=== PATIENT | female | born 1950 | race Caucasian/White ===

== ENCOUNTER 2017-05-24 20:07 | Emergency (ER) | payer MEDICARE, OTHER ==
--- NOTE | 2017-05-24 21:39 | EDM.PDOC ---
ED HPI GENERAL MEDICAL PROBLEM - General Chief Complaint: Laceration Stated Complaint: FALL FACE LAC Time Seen by Provider: 05/24/17 20:39 Source of Information: Reports: Patient, Family History Limitations: Reports: No Limitations - History of Present Illness INITIAL COMMENTS - FREE TEXT/NARRATIVE: 67 y.o.w.[place] came to the ed after she fell of a Flatbed (mechanical Fall) straight onto her face. Pt noticed some facial bleed which brought her to the ED. She karimi some discomfort at her r eye when turning it to the right side. R susannah orbital tenderness as well, no LOC. No vision change. No active bleed. No other acute medical issues at this time. 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 Right Face Pain Score (Numeric/FACES): 7 - Related Data Allergies Allergy/AdvReac Type Severity Reaction Status Date / Time minocycline [Minocycline] Allergy Swelling Verified 05/24/17 20:35 Home Meds: Home Meds Ascorbic Acid [Vitamin C] 500 mg PO BID 03/22/14 [History] Calcium Carb/D3/Mag AA Chelate [Coral Calcium Capsule] 1 each PO DAILY 03/22/14 [History] Ergocalciferol (Vitamin D2) [Vitamin D] 400 unit PO DAILY 03/22/14 [History] Ferrous Sulfate [Iron] 325 mg PO DAILY 03/22/14 [History] Lactobacillus Acidophilus [Acidophilus] 1 each PO DAILY 03/22/14 [History] Levothyroxine 75 mcg PO ACBRK 03/22/14 [History] Meloxicam 15 mg PO DAILY 03/22/14 [History] Multivitamin [Multi-Vitamin Daily] 1 each PO DAILY 03/22/14 [History] Sertraline HCl 200 mg PO DAILY 03/22/14 [History] Triamcinolone Acetonide [Triamcinolone Acetonide 0.1% Crm] 1 applic TOP BID [History] Valsartan/Hydrochlorothiazide [Valsartan-Hctz 160-12.5 mg Tab] 1 each PO DAILY 03/22/14 [History] Vitamin E 400 unit PO DAILY 03/22/14 [History] traZODone 50 mg PO BEDTIME PRN 03/22/14 [History] Lutein 20 mg PO DAILY 03/23/14 [History] Amoxicillin/Potassium Clav [Augmentin 875-125 Tablet] 1 each PO BID #20 tablet 05/24/17 [Rx] Hydrocodone/Acetaminophen [[place] 5-325] 1 tab PO Q4H PRN #10 tablet 05/24/17 [Rx ] Past Medical History HEENT History: Reports: Cataract, Impaired Vision Cardiovascular History: Reports: Hypertension Respiratory History: Reports: Bronchitis, Recurrent, Pneumonia, Recurrent Gastrointestinal History: Reports: GERD Genitourinary History: Reports: UTI, Recurrent RAIL SPECIALIST History: Reports: None, Musculoskeletal History: Reports: Back Pain, Chronic Neurological History: Reports: Neuropathy, Peripheral Other Neuro History: NUMBNESS IN BALL OF LEFT FOOT AND LEFT TOES AND RIGHT GREAT TOE Psychiatric History: Reports: Depression Endocrine/Metabolic History: Reports: Hypothyroidism, Obesity/BMI 30+ Hematologic History: Reports: Blood Transfusion(s), Iron Deficiency Immunologic History: Reports: None Oncologic (Cancer) History: Reports: None Dermatologic History: Reports: None - Infectious Disease History Infectious Disease History: Reports: Chicken Pox, Measles - Past Surgical History Head Surgeries/Procedures: Reports: None Cardiovascular Surgical History: Reports: None GI Surgical History: Reports: Bariatric Procedure, Cholecystectomy, Colonoscopy , EGD, Hernia Repair/Other Female Surgical History: Reports: Breast Biopsy Endocrine Surgical History: Reports: None Neurological Surgical History: Reports: Scoliosis, Spinal Fusion Musculoskeletal Surgical History: Reports: Arthroscopic Knee, Arthroscopic Procedure, Carpal Tunnel, Knee Replacement, Shoulder Surgery Oncologic Surgical History: Reports: Biopsy of Breast, Lumpectomy Dermatological Surgical History: Reports: None Social & Family History - Tobacco Use Smoking Status *Q: Never Smoker Second Hand Smoke Exposure: No - Caffeine Use Caffeine Use: Reports: Coffee - Alcohol Use Days Per Week of Alcohol Use: 1 - Recreational Drug Use Recreational Drug Use: No ED ROS GENERAL - Review of Systems Review Of Systems: See Below Constitutional: Reports: No Symptoms HEENT: Reports: Sinus Problem (pain) Respiratory: Reports: No Symptoms Cardiovascular: Reports: No Symptoms Endocrine: Reports: No Symptoms GI/Abdominal: Reports: No Symptoms : Reports: No Symptoms Musculoskeletal: Reports: No Symptoms Skin: Reports: No Symptoms Neurological: Reports: No Symptoms Psychiatric: Reports: No Symptoms Hematologic/Lymphatic: Reports: No Symptoms Immunologic: Reports: No Symptoms ED EXAM, SKIN/RASH Exam: See Below Exam Limited By: No Limitations General Appearance: Alert, WD/WN, Mild Distress, Obese Eye Exam: Bilateral Eye: Normal Inspection Ears: Normal External Exam, Normal Canal Nose: Nasal Swelling Throat/Mouth: Normal Inspection Head: Normocephalic, Facial Swelling Neck: Normal Inspection, Supple, Non-Tender, Full Range of Motion Respiratory/Chest: No Respiratory Distress, Lungs Clear, Normal Breath Sounds Cardiovascular: Normal Peripheral Pulses, Regular Rate, Rhythm, No Edema, No Gallop Peripheral Pulses: 1+: Femoral (L), Femoral (R) GI/Abdominal: Normal Bowel Sounds, Soft, Non-Tender (Female) Exam: Deferred Rectal (Female) Exam: Deferred Back Exam: Normal Inspection, Full Range of Motion Extremities: Normal Inspection, Normal Range of Motion, Non-Tender, No Pedal Edema Neurological: Alert, Oriented, CN II-XII Intact Psychiatric: Normal Affect Location, Skin: Face ED SKIN PROCEDURES - Laceration/Wound Repair Middle Face Lac/Wound length In cm: 1 Appearance: Subcutaneous, Mildly Contaminated Distal NVT: Neuro & Vascular Intact, No Tendon Injury Anesthetic Type: Local Local Anesthesia - Bupivicaine (Marcaine): 0.5% Plain Local Anesthetic Volume: 2cc Skin Prep: Providone-Iodine (Betadine) Exploration/Debridement/Repair: Wound Explored, In a Bloodless Field Closed with: Sutures Suture Type: Interrupted Suture Size: 4-0 # of Sutures: 3 Tetanus Status Addressed: Other (pt sya she is current on her TD immunzation) Complications: No Course - Vital Signs Text/Narrative:: 67 y.o.w.f came to the ed after she fell of a Flatbed (mechanical Fall) straight onto her face. Pt noticed some facial bleed which brought her to the ED. She karimi some discomfort at her r eye when turning it to the right side. R susannah orbital tenderness as well, no LOC. No vision change. No active bleed. No other acute medical issues at this time. PE: Periorbiat edema with tenderness, Facial LAC, no active bleed. Imaging: Blowout Fx involving the right orbital floor with bone fragments and periorbital fat displaced 9 mm inferiorly into the right maxillary sinus. Procedure: Please see note above Impression: Mechanical fall, Blowout fracture right orbital floor. Facial laceration, repaired in the ed. 10.17 pm Consultation: Dr. Finley, Trauma surgeon [facility]. Tx: Wound repair, Rocnatan, ICE Reexam: Improved Plan: D/C with instructions. Last Recorded V/S: Last Vital Signs Temp 36.6 C 05/24/17 20:39 Pulse 58 L 05/24/17 20:39 Resp 14 05/24/17 20:39 BP 127/70 05/24/17 20:39 Pulse Ox 100 05/24/17 20:39 - Orders/Labs/Meds Orders: Active Orders 24 hr Category Date Time Status Max Facial Sinus wo Cont [CT] Stat Exams 05/24/17 20:54 Taken Meds: Medications Discontinued Medications Generic Name Dose Route Start Last Admin Trade Name Freq PRN Reason Stop Dose Admin Ceftriaxone Sodium 1,000 mg 05/24/17 22:36 05/24/17 22:45 Rocephin IM 05/24/17 22:37 1,000 mg ONETIME ONE Administration Departure - Departure Time of Disposition: 22:36 Disposition: Home, Self-Care 01 Condition: Good Clinical Impression: Open blow-out fracture of right orbit Qualifiers: Encounter type: initial encounter Qualified Code(s): S02.31XB - Fracture of orbital floor, right side, initial encounter for open fracture Facial laceration Qualifiers: Encounter type: initial encounter Qualified Code(s): S01.81XA - Laceration without foreign body of other part of head, initial encounter - Discharge Information Prescriptions: Amoxicillin/Potassium Clav [Augmentin 875-125 Tablet] 1 each PO BID #20 tablet Hydrocodone/Acetaminophen [[place] 5-325] 1 tab PO Q4H PRN #10 tablet PRN Reason: severe pain only Instructions: Orbital Floor Fracture, Blowout Referrals: Yu Lott NP [Primary Care Provider] - Forms: ED Department Discharge Additional Instructions: Please f/u with the facial/max surgeon Dr. Finley, [facility] this week. Please make an appointment. Please take the Augmentin Abx as recommended, Motrin for mod pain, [place] for severe pain. Please do not blow your nose. Please come back to the ed if your symptoms get worse acutely. Wound check in 2 days suture removal in 7 days. - My Orders Last 24 Hours: My Active Orders 05/24/17 20:54 Max Facial Sinus wo Cont [CT] Stat - Assessment/Plan Last 24 Hours: My Active Orders 05/24/17 20:54 Max Facial Sinus wo Cont [CT] Stat
[2017-05-24] MEDS ORDERED: cefTRIAXone 1,000 MG VIAL IM ONE (22:36)
[2017-05-24 23:07] VITALS: BP 137/66
== END 2017-05-24 23:02 | disposition home or self-care (01) ==
LOC: FB.ED 20:07
DX: S02.31XB Fracture of orbital floor, right side, initial encounter for open fracture (principal); S01.81XA Laceration without foreign body of other part of head, initial encounter; H54.7 Unspecified visual loss; I10 Essential (primary) hypertension; Z87.01 Personal history of pneumonia (recurrent); K21.9 Gastro-esophageal reflux disease without esophagitis; F32.9 Major depressive disorder, single episode, unspecified; E03.9 Hypothyroidism, unspecified; E66.9 Obesity, unspecified; Z87.440 Personal history of urinary (tract) infections; Z90.49 Acquired absence of other specified parts of digestive tract; Z79.899 Other long term (current) drug therapy; Z88.8 Allergy status to other drugs, medicaments and biological substances; Z98.84 Bariatric surgery status; W06.XXXA Fall from bed, initial encounter
CPT/HCPCS: 12011; 70486; 96372; 99283; 99284; J0696

== ENCOUNTER 2017-06-09 11:25 | Inpatient (IN) | payer MEDICARE, OTHER ==
[2017-06-09] MEDS ORDERED: Sodium Chloride 0.9% 10 ML Syringe FLUSH PRN (11:48)
--- NOTE | 2017-06-09 11:53 | EDM.PDOC ---
[id number] 4d WEAKNESS Time Seen by Provider: 06/09/17 11:40 Source of Information: Reports: Patient, Family, Old Records History Limitations: Reports: Altered Mental Status - History of Present Illness INITIAL COMMENTS - FREE TEXT/NARRATIVE: 67 yo female was seen here a couple weaks ago after a fall in which she suffered a blow out fx of the R orbit. She did not have any muscle entrapment, so the internet marketing consultant she saw in follow up did not recommend any additional tx. Over the past several days now she has become more and more confused and has generalized weakness. No focal deficits. Is drinking a lot of water lately, not eating well. Did get an Rx a few days ago for valtrex that she has been taking. Onset: Gradual Onset Date: 06/06/17 Duration: Day(s): Location: Reports: Generalized Quality: Reports: Other (no pain) Severity: Moderate Improves with: Reports: None Worsens with: Reports: Other (time) Context: Reports: Other (unknown) Associated Symptoms: Reports: Confusion, Weakness (generalized.) Treatments FORM MAKER: Reports: Other (see below) (none) all over body Pain Score (Numeric/FACES): 10 LEFT HIP AND THIGH Pain Score (Numeric/FACES): 5 - Related Data Allergies Allergy/AdvReac Type Severity Reaction Status Date / Time minocycline [Minocycline] Allergy Swelling Verified 06/09/17 11:37 Home Meds: Home Meds Ascorbic Acid [Vitamin C] 500 mg PO BID 03/22/14 [History] Calcium Carb/D3/Mag AA Chelate [Coral Calcium Capsule] 1 each PO DAILY 03/22/14 [History] Ergocalciferol (Vitamin D2) [Vitamin D] 400 unit PO DAILY 03/22/14 [History] Ferrous Sulfate [Iron] 325 mg PO DAILY 03/22/14 [History] Lactobacillus Acidophilus [Acidophilus] 1 each PO DAILY 03/22/14 [History] Levothyroxine 75 mcg PO ACBRK 03/22/14 [History] Multivitamin [Multi-Vitamin Daily] 1 each PO DAILY 03/22/14 [History] Sertraline HCl 200 mg PO DAILY 03/22/14 [History] Triamcinolone Acetonide [Triamcinolone Acetonide 0.1% Crm] 1 applic TOP BID [History] Vitamin E 400 unit PO DAILY 03/22/14 [History] traZODone 50 mg PO BEDTIME PRN 03/22/14 [History] Lutein 20 mg PO DAILY 03/23/14 [History] Amoxicillin/Potassium Clav [Augmentin 875-125 Tablet] 1 each PO BID #20 tablet 05/24/17 [Rx] Hydrocodone/Acetaminophen [[place] 5-325] 1 tab PO Q4H PRN #10 tablet 05/24/17 [Rx ] Acetaminophen [Tylenol] 650 mg PO ASDIRECTED PRN 06/09/17 [History] Esomeprazole Magnesium [Nexium 24Hr] 22.3 mg PO ASDIRECTED PRN 06/09/17 [History ] Gabapentin [Neurontin] 200 mg PO BID 06/09/17 [History] Ibuprofen [Advil] 200 mg PO ASDIRECTED PRN 06/09/17 [History] Valsartan/Hydrochlorothiazide [Valsartan-Hctz 80-12.5 mg Tab] 1 each PO DAILY [History] busPIRone [Buspar] 7.5 mg PO BID 06/09/17 [History] traMADol [Ultram] 50 mg PO BID PRN 06/09/17 [History] valACYclovir HCl [Valacyclovir] 1,000 mg PO TID 06/09/17 [History] Past Medical History HEENT History: Reports: Cataract, Impaired Vision Cardiovascular History: Reports: Hypertension Respiratory History: Reports: Bronchitis, Recurrent, Pneumonia, Recurrent Gastrointestinal History: Reports: GERD Genitourinary History: Reports: UTI, 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 APPRENTICE History: Reports: None, Musculoskeletal History: Reports: Back Pain, Chronic Neurological History: Reports: Neuropathy, Peripheral Other Neuro History: NUMBNESS IN BALL OF LEFT FOOT AND LEFT TOES AND RIGHT GREAT TOE Psychiatric History: Reports: Depression Endocrine/Metabolic History: Reports: Hypothyroidism, Obesity/BMI 30+ Hematologic History: Reports: Blood Transfusion(s), Iron Deficiency Immunologic History: Reports: None Oncologic (Cancer) History: Reports: None Dermatologic History: Reports: None - Infectious Disease History Infectious Disease History: Reports: Chicken Pox, Measles - Past Surgical History Head Surgeries/Procedures: Reports: None Cardiovascular Surgical History: Reports: None GI Surgical History: Reports: Bariatric Procedure, Cholecystectomy, Colonoscopy , EGD, Hernia Repair/Other Female Surgical History: Reports: Breast Biopsy Endocrine Surgical History: Reports: None Neurological Surgical History: Reports: Scoliosis, Spinal Fusion Musculoskeletal Surgical History: Reports: Arthroscopic Knee, Arthroscopic Procedure, Carpal Tunnel, Knee Replacement, Shoulder Surgery Oncologic Surgical History: Reports: Biopsy of Breast, Lumpectomy Dermatological Surgical History: Reports: None Social & Family History - Tobacco Use Smoking Status *Q: Never Smoker Second Hand Smoke Exposure: No - Caffeine Use Caffeine Use: Reports: Coffee - Alcohol Use Days Per Week of Alcohol Use: 1 - Recreational Drug Use Recreational Drug Use: No ED ROS GENERAL - Review of Systems Review Of Systems: See Below Constitutional: Reports: Weakness. Denies: Fever, Chills, Weight Loss HEENT: Reports: No Symptoms Respiratory: Reports: No Symptoms Cardiovascular: Reports: No Symptoms Endocrine: Reports: No Symptoms GI/Abdominal: Reports: No Symptoms : Reports: No Symptoms Musculoskeletal: Reports: No Symptoms Skin: Reports: Other (Has residual brusing from her fall a couple weeks ago.) Neurological: Reports: Confusion, Difficulty Walking, Weakness Psychiatric: Reports: No Symptoms ED EXAM, GENERAL - Physical Exam Exam: See Below Exam Limited By: No Limitations General Appearance: Alert, WD/WN, No Apparent Distress Eye Exam: Bilateral Eye: EOMI, Normal Inspection Ears: Normal External Exam, Normal Canal, Hearing Grossly Normal, Normal TMs Ear Exam: Bilateral Ear: Auricle Normal, Canal Normal, TM normal Nose: Normal Inspection, Normal Mucosa Throat/Mouth: Normal Inspection, Normal Lips, Normal Teeth, Normal Oropharynx, Normal Voice, No Airway Compromise Head: Atraumatic, Normocephalic Neck: Normal Inspection, Supple, Non-Tender Respiratory/Chest: No Respiratory Distress, Lungs Clear, Normal Breath Sounds, No Accessory Muscle Use Cardiovascular: Regular Rate, Rhythm, No Edema GI/Abdominal: Normal Bowel Sounds, Soft, Non-Tender, No Distention Back Exam: Normal Inspection. No: CVA Tenderness (R), CVA Tenderness (L), Paraspinal Tenderness, Vertebral Tenderness Extremities: Normal Inspection, Normal Range of Motion, Non-Tender, No Pedal Edema Neurological: Alert, Disoriented, Sensory/Motor Deficit (diffuse weakness of all extrems) Skin Exam: Warm, Dry, Intact, Normal Color, No Rash, Other (No evidence on skin exam today to support the dx of shingles. ). No: Zoster-Like Rash Lymphatic: No Adenopathy Course - Vital Signs Text/Narrative:: saline lock, NS + 20 meq kcl/liter @ 150 ml/h IV, KCL 40 meq po, aspirin [address] head-? evolving infarct L internal capsule(anterior limb) CXR- Last Recorded V/S: Last Vital Signs Temp 37.1 C 06/09/17 16:00 Pulse 101 H 06/09/17 14:03 Resp 35 H 06/09/17 16:00 BP 180/79 H 06/09/17 16:00 Pulse Ox 96 06/09/17 16:00 - Orders/Labs/Meds Orders: Active Orders 24 hr Category Date Time Status Patient Status [ADT] Routine ADT 06/09/17 13:27 Active Bedrest Bedside Commode [RC] ASDIRECTED Care 06/09/17 13:27 Active Vieira Catheter Insertion [Insert Urinary Catheter] [OM. Care 06/09/17 13:15 Ordered PC] Q24H Height and Weight [RC] 06 Care 06/09/17 13:27 Active Intake and Output [RC] 06,14,22 Care 06/09/17 13:28 Active Oxygen Therapy [RC] PRN Care 06/09/17 13:27 Active Urinary Catheter Assessment [RC] 08,16,00 Care 06/09/17 13:06 Active VTE/DVT Education [RC] Per Unit Routine Care 06/09/17 13:27 Active Vital Signs [RC] 04,08,12,16,20,00 Care 06/09/17 13:27 Active Regular Diet [DIET] Diet 06/09/17 Breakfast Ordered BASIC METABOLIC PANEL,BMP [CHEM] AM Lab 06/10/17 05:11 Ordered CBC WITH AUTO DIFF [HEME] AM Lab 06/10/17 05:11 Ordered CULTURE BLOOD [BC] Urgent Lab 06/09/17 12:45 Received CULTURE BLOOD [BC] Urgent Lab 06/09/17 12:50 Received Levothyroxine Med 06/09/17 13:45 Active 75 mcg PO ACBRK Lutein Med 06/10/17 09:00 Active 20 mg PO DAILY Multivitamins [Tab-A-Brett] Med 06/10/17 09:00 Active 1 tab PO DAILY Sertraline [Zoloft] Med 06/10/17 09:00 Active 200 mg PO DAILY Sodium Chloride 0.9% [Normal Saline] 1,000 ml Med 06/09/17 13:30 Active IV ASDIRECTED Sodium Chloride 0.9% [Saline Flush] Med 06/09/17 11:48 Active 10 ml FLUSH ASDIRECTED PRN Triamcinolone Acetonide [Triamcinolone Acetonide 0.1% Med 06/09/17 21:00 Active Crm] 0 gm TOP BID Vitamin E (dl, acetate) [Vitamin E] Med 06/10/17 09:00 Active 400 units PO DAILY traMADol [Ultram] Med 06/09/17 13:34 Active 50 mg PO DAILY PRN traZODone Med 06/09/17 13:34 Active 50 mg PO BEDTIME PRN Antiembolic Hose [OM.PC] Per Unit Routine Oth 06/09/17 13:30 Ordered Blood Culture x2 Reflex Set [OM.PC] Urgent Oth 06/09/17 12:21 Ordered Saline Lock Insert [OM.PC] Routine Oth 06/09/17 11:48 Ordered Resuscitation Status Routine Resus Stat 06/09/17 13:27 Ordered EKG 12 Lead [EK] Stat Ther 06/09/17 13:27 Ordered Medication Orders Sodium Chloride (Normal Saline) 1,000 mls @ 150 mls/hr IV ASDIRECTED BETHANY Last Admin: 06/09/17 15:17 Dose: 150 mls/hr Sodium Chloride (Normal Saline) 1,000 mls @ 999 mls/hr IV .BOLUS ONE Stop: 06/09/17 21:20 Levothyroxine Sodium (Levothyroxine) 75 mcg PO ACBRK REPLACED BY [facility] Last Admin: 06/09/17 15:47 Dose: Lutein (Lutein) 20 mg PO DAILY REPLACED BY [facility] Multivitamins/Minerals/Vitamin C (Tab-A-Brett) 1 tab PO DAILY REPLACED BY [facility] Non-Formulary Medication (Esomeprazole Magnesium [Nexium 24hr]) 22.3 mg PO ASDIRECTED PRN PRN Reason: ASDIRECTED Potassium Chloride (Klor-Con M20) 20 meq PO TID REPLACED BY [facility] Last Admin: 06/09/17 16:00 Dose: 20 meq Sertraline HCl (Zoloft) 200 mg PO DAILY REPLACED BY [facility] Sodium Chloride (Saline Flush) 10 ml FLUSH ASDIRECTED PRN PRN Reason: Keep Vein Open Last Admin: 06/09/17 12:20 Dose: 10 ml Tramadol HCl (Ultram) 50 mg PO DAILY PRN PRN Reason: pain Trazodone HCl (Trazodone) 50 mg PO BEDTIME PRN PRN Reason: Insomnia Triamcinolone Acetonide (Triamcinolone Acetonide 0.1% Crm) 0 gm TOP BID BETHANY Vitamin E (Vitamin E) 400 units PO DAILY BETHANY Labs: Laboratory Tests 06/09/17 06/09/17 06/09/17 Range/Units 11:55 11:55 11:55 WBC 38.2 H* (4.5-12.0) X10-3/uL RBC 2.95 L (3.23-5.20) x10(6)uL Hgb 9.4 L (11.5-15.5) g/dL Hct 27.2 L (30.0-51.3) % MCV 92.0 (80-96) fL MCH 31.9 (27.7-33.6) pg MCHC 34.7 (32.2-35.4) g/dL RDW 13.0 (11.5-15.5) % Plt Count 173 (125-369) X10(3)uL Sodium 133 L (135-145) mmol/L Potassium 2.4 L* (3.5-5.3) mmol/L Chloride 102 (100-110) mmol/L Carbon Dioxide 18 L (23-29) mmol/L BUN 63 H (8-23) mg/dL Creatinine 3.2 H* (0.6-1.3) mg/dL Est Cr Clr Drug Dosing 12.25 mL/min Estimated GFR (MDRD) 14 L (>60) BUN/Creatinine Ratio 19.7 (9-20) Glucose 130 H (80-116) mg/dL Lactic Acid (0.5-2.2) mmol/L Calcium 7.6 L (8.6-10.2) mg/dL Magnesium (1.8-2.5) mg/dL Total Bilirubin 0.7 (0.1-1.3) mg/dL AST 32 H (5-27) IU/L ALT 27 H (14-26) IU/L Alkaline Phosphatase 142 H (56-112) IU/L Troponin I 0.04 (0.02-0.06) NG/ML Total Protein 6.3 (6.0-8.0) g/dL Albumin 2.1 L (3.2-4.6) g/dL Globulin 4.2 g/dL Albumin/Globulin Ratio 0.5 Urine Color (YELLOW) Urine Appearance (CLEAR) Urine pH (5.0-6.5) Ur Specific Barney (1.010-1.025) Urine Protein (NEGATIVE) mg/dL Urine Glucose (UA) (NEGATIVE) mg/dL Urine Ketones (NEGATIVE) mg/dL Urine Occult Blood (NEGATIVE) Urine Nitrite (NEGATIVE) Urine Bilirubin (NEGATIVE) Urine Urobilinogen (NEGATIVE) mg/dL Ur Leukocyte Esterase (NEGATIVE) Urine RBC (0) Urine WBC (0) Ur Squamous Epith Cells (NS,R,O) Urine Bacteria (NS) Urine Opiates Screen (NEGATIVE) Ur Oxycodone Screen (NEGATIVE) Ur Propoxyphene Screen (NEGATIVE) Ur Barbituates Screen (NEGATIVE) Ur Tricyclics Screen (NEGATIVE) Ur Phencyclidine Scrn (NEGATIVE) Ur Amphetamine Screen (NEGATIVE) Urine MDMA Screen (NEGATIVE) U Benzodiazepines Scrn (NEGATIVE) U Cocaine Metab Screen (NEGATIVE) U Marijuana (THC) Screen (NEGATIVE) Ethyl Alcohol (<0.01) % 06/09/17 06/09/17 06/09/17 Range/Units 11:55 11:55 12:50 WBC (4.5-12.0) X10-3/uL RBC (3.23-5.20) x10(6)uL Hgb (11.5-15.5) g/dL Hct (30.0-51.3) % MCV (80-96) fL MCH (27.7-33.6) pg MCHC (32.2-35.4) g/dL RDW (11.5-15.5) % Plt Count (125-369) X10(3)uL Sodium (135-145) mmol/L Potassium (3.5-5.3) mmol/L Chloride (100-110) mmol/L Carbon Dioxide (23-29) mmol/L BUN (8-23) mg/dL Creatinine (0.6-1.3) mg/dL Est Cr Clr Drug Dosing mL/min Estimated GFR (MDRD) (>60) BUN/Creatinine Ratio (9-20) Glucose (80-116) mg/dL Lactic Acid 0.8 (0.5-2.2) mmol/L Calcium (8.6-10.2) mg/dL Magnesium 1.8 (1.8-2.5) mg/dL Total Bilirubin (0.1-1.3) mg/dL AST (5-27) IU/L ALT (14-26) IU/L Alkaline Phosphatase (56-112) IU/L Troponin I (0.02-0.06) NG/ML Total Protein (6.0-8.0) g/dL Albumin (3.2-4.6) g/dL Globulin g/dL Albumin/Globulin Ratio Urine Color (YELLOW) Urine Appearance (CLEAR) Urine pH (5.0-6.5) Ur Specific Barney (1.010-1.025) Urine Protein (NEGATIVE) mg/dL Urine Glucose (UA) (NEGATIVE) mg/dL Urine Ketones (NEGATIVE) mg/dL Urine Occult Blood (NEGATIVE) Urine Nitrite (NEGATIVE) Urine Bilirubin (NEGATIVE) Urine Urobilinogen (NEGATIVE) mg/dL Ur Leukocyte Esterase (NEGATIVE) Urine RBC (0) Urine WBC (0) Ur Squamous Epith Cells (NS,R,O) Urine Bacteria (NS) Urine Opiates Screen (NEGATIVE) Ur Oxycodone Screen (NEGATIVE) Ur Propoxyphene Screen (NEGATIVE) Ur Barbituates Screen (NEGATIVE) Ur Tricyclics Screen (NEGATIVE) Ur Phencyclidine Scrn (NEGATIVE) Ur Amphetamine Screen (NEGATIVE) Urine MDMA Screen (NEGATIVE) U Benzodiazepines Scrn (NEGATIVE) U Cocaine Metab Screen (NEGATIVE) U Marijuana (THC) Screen (NEGATIVE) Ethyl Alcohol < 0.01 (<0.01) % 06/09/17 06/09/17 Range/Units 13:15 13:15 WBC (4.5-12.0) X10-3/uL RBC (3.23-5.20) x10(6)uL Hgb (11.5-15.5) g/dL Hct (30.0-51.3) % MCV (80-96) fL MCH (27.7-33.6) pg MCHC (32.2-35.4) g/dL RDW (11.5-15.5) % Plt Count (125-369) X10(3)uL Sodium (135-145) mmol/L Potassium (3.5-5.3) mmol/L Chloride (100-110) mmol/L Carbon Dioxide (23-29) mmol/L BUN (8-23) mg/dL Creatinine (0.6-1.3) mg/dL Est Cr Clr Drug Dosing mL/min Estimated GFR (MDRD) (>60) BUN/Creatinine Ratio (9-20) Glucose (80-116) mg/dL Lactic Acid (0.5-2.2) mmol/L Calcium (8.6-10.2) mg/dL Magnesium (1.8-2.5) mg/dL Total Bilirubin (0.1-1.3) mg/dL AST (5-27) IU/L ALT (14-26) IU/L Alkaline Phosphatase (56-112) IU/L Troponin I (0.02-0.06) NG/ML Total Protein (6.0-8.0) g/dL Albumin (3.2-4.6) g/dL Globulin g/dL Albumin/Globulin Ratio Urine Color Yellow (YELLOW) Urine Appearance Cloudy (CLEAR) Urine pH 5.0 (5.0-6.5) Ur Specific Barney 1.010 (1.010-1.025) Urine Protein 30 H (NEGATIVE) mg/dL Urine Glucose (UA) Normal (NEGATIVE) mg/dL Urine Ketones Negative (NEGATIVE) mg/dL Urine Occult Blood Moderate H (NEGATIVE) Urine Nitrite Negative (NEGATIVE) Urine Bilirubin Negative (NEGATIVE) Urine Urobilinogen Normal (NEGATIVE) mg/dL Ur Leukocyte Esterase Moderate H (NEGATIVE) Urine RBC 5-10 (0) Urine WBC 75-100 H (0) Ur Squamous Epith Cells Few H (NS,R,O) Urine Bacteria Many H (NS) Urine Opiates Screen Negative (NEGATIVE) Ur Oxycodone Screen Negative (NEGATIVE) Ur Propoxyphene Screen Negative (NEGATIVE) Ur Barbituates Screen Negative (NEGATIVE) Ur Tricyclics Screen Negative (NEGATIVE) Ur Phencyclidine Scrn Negative (NEGATIVE) Ur Amphetamine Screen Negative (NEGATIVE) Urine MDMA Screen Negative (NEGATIVE) U Benzodiazepines Scrn Negative (NEGATIVE) U Cocaine Metab Screen Negative (NEGATIVE) U Marijuana (THC) Screen Negative (NEGATIVE) Ethyl Alcohol (<0.01) % Meds: Medications Generic Name Dose Route Start Last Admin Trade Name Freq PRN Reason Stop Dose Admin Sodium Chloride 1,000 mls @ 150 mls/hr 06/09/17 13:30 06/09/17 15:17 Normal Saline IV 150 mls/hr ASDIRECTED BETHANY Administration Sodium Chloride 1,000 mls @ 999 mls/hr 06/09/17 20:20 Normal Saline IV 06/09/17 21:20 .BOLUS ONE Levothyroxine Sodium 75 mcg 06/09/17 13:45 06/09/17 15:47 Levothyroxine PO Not Given ACBRK BETHANY Lutein 20 mg 06/10/17 09:00 Lutein PO DAILY REPLACED BY [facility] Multivitamins/Minerals/Vitamin C 1 tab 06/10/17 09:00 Tab-A-Brett PO DAILY REPLACED BY [facility] Non-Formulary Medication 22.3 mg 06/09/17 17:26 Esomeprazole Magnesium [Nexium 24hr] PO ASDIRECTED PRN ASDIRECTED Potassium Chloride 20 meq 06/09/17 14:01 06/09/17 16:00 Klor-Con M20 PO 20 meq TID BETHANY Administration Sertraline HCl 200 mg 06/10/17 09:00 Zoloft PO DAILY REPLACED BY [facility] Sodium Chloride 10 ml 06/09/17 11:48 06/09/17 12:20 Saline Flush FLUSH 10 ml ASDIRECTED PRN Administration Keep Vein Open Tramadol HCl 50 mg 06/09/17 13:34 Ultram PO DAILY PRN pain Trazodone HCl 50 mg 06/09/17 13:34 Trazodone PO BEDTIME PRN Insomnia Triamcinolone Acetonide 0 gm 06/09/17 21:00 Triamcinolone Acetonide 0.1% Crm TOP BID REPLACED BY [facility] Vitamin E 400 units 06/10/17 09:00 Vitamin E PO DAILY REPLACED BY [facility] Discontinued Medications Generic Name Dose Route Start Last Admin Trade Name Freq PRN Reason Stop Dose Admin Aspirin 324 mg 06/09/17 12:37 06/09/17 12:47 Aspirin PO 06/09/17 12:38 324 mg ONETIME ONE Administration Potassium Chloride/Sodium Chloride 1,000 mls @ 150 mls/hr 06/09/17 12:30 12:33 Normal Saline With 20 Meq Kcl IV 150 mls/hr ASDIRECTED BETHANY Administration Potassium Chloride/Sodium Chloride 1,000 mls @ 500 mls/hr 06/09/17 13:15 13:20 Normal Saline With 20 Meq Kcl IV 500 mls/hr ASDIRECTED BETHANY Administration Vancomycin HCl 1,000 mg/ 250 mls @ 167 mls/hr 06/09/17 17:00 06/09/17 17:38 Sodium Chloride IV 06/09/17 18:29 167 mls/hr ONETIME ONE Administration Ceftriaxone Sodium 1,000 mg/ 50 mls @ 100 mls/hr 06/09/17 16:00 06/09/17 16: 41 Sodium Chloride IV 06/09/17 16:29 100 mls/hr ONETIME ONE Administration Potassium Chloride 40 meq 06/09/17 12:18 06/09/17 12:33 Klor-Con 10 PO 06/09/17 12:19 40 meq ONETIME ONE Administration Departure - Departure Time of Disposition: 16:05 Disposition: Admitted As Inpatient 66 Condition: Fair Clinical Impression: Hyperkalemia, Hyponatremia Acute renal failure Qualifiers: Acute renal failure type: unspecified Qualified Code(s): N17.9 - Acute kidney failure, unspecified Leukocytosis Qualifiers: Leukocytosis type: unspecified Qualified Code(s): D72.829 - Elevated white blood cell count, unspecified Anemia Qualifiers: Anemia type: unspecified type Qualified Code(s): D64.9 - Anemia, unspecified - Discharge Information - My Orders Last 24 Hours: My Active Orders 06/09/17 11:48 Sodium Chloride 0.9% [Saline Flush] 10 ml FLUSH ASDIRECTED PRN Saline Lock Insert [OM.PC] Routine 06/09/17 12:21 Blood Culture x2 Reflex Set [OM.PC] Urgent 06/09/17 12:45 CULTURE BLOOD [BC] Urgent 06/09/17 12:50 CULTURE BLOOD [BC] Urgent 06/09/17 13:06 Urinary Catheter Assessment [RC] 08,16,00 06/09/17 13:15 Vieira Catheter Insertion [Insert Urinary Catheter] [OM.PC] Q24H - Assessment/Plan Last 24 Hours: My Active Orders 06/09/17 11:48 Sodium Chloride 0.9% [Saline Flush] 10 ml FLUSH ASDIRECTED PRN Saline Lock Insert [OM.PC] Routine 06/09/17 12:21 Blood Culture x2 Reflex Set [OM.PC] Urgent 06/09/17 12:45 CULTURE BLOOD [BC] Urgent 06/09/17 12:50 CULTURE BLOOD [BC] Urgent 06/09/17 13:06 Urinary Catheter Assessment [RC] 08,16,00 06/09/17 13:15 Vieira Catheter Insertion [Insert Urinary Catheter] [OM.PC] Q24H
[2017-06-09] MEDS ORDERED: Potassium Chloride 10 MEQ Tab.ER PO ONE (12:18)
[2017-06-09] MEDS ORDERED: NS + KCl 20mEq/L 1,000 ML IV SCH ×2 (12:30→13:15)
[2017-06-09] MEDS ORDERED: Aspirin 81 MG Tab.Chew PO ONE (12:37)
[2017-06-09] MEDS ORDERED: Sodium Chloride 0.9% 1,000 ML IV SCH (13:30)
[2017-06-09] MEDS ORDERED: traMADol 50 MG Tab PO PRN (13:34)
[2017-06-09] MEDS ORDERED: traZODone 50 MG Tab PO PRN (13:34)
--- NOTE | 2017-06-09 13:40 | PCM.HP ---
H&P History of Present Illness - General Date of Service: 06/09/17 Source of Information: Patient, Old Records, Significant Other - History of Present Illness Initial Comments - Free Text/Narative: 67-year-old female came in because of feeling poorly. Her symptoms started a few days ago. Her brought her in because she looked confused which is new for her. Last week short incision at the clinic given Valtrex for possible shingles. She also fell in the last month and hit her head sustaining a blow out fracture of the orbit. That has been healing well. She has a history of hypothyroidism that is stable hypertension that is well controlled and depression and anxiety that have also been well-controlled. She denies fever but complains of chills and rigors, some anxiety attacks, but no headache or cough No complaints of any chest pain neck pain or stiffness. The emergency room she was found to have a high creatinine(4.4) compared to last baseline(1.2) at the beginning of this year. all over body Pain Score (Numeric/FACES): 10 LEFT HIP AND THIGH Pain Score (Numeric/FACES): 5 - Related Data Allergies/Adverse Reactions: Allergies Allergy/AdvReac Type Severity Reaction Status Date / Time minocycline [Minocycline] Allergy Swelling Verified 06/09/17 11:37 Home Medications: Home Meds Ascorbic Acid [Vitamin C] 500 mg PO BID 03/22/14 [History] Calcium Carb/D3/Mag AA Chelate [Coral Calcium Capsule] 1 each PO DAILY 03/22/14 [History] Ergocalciferol (Vitamin D2) [Vitamin D] 400 unit PO DAILY 03/22/14 [History] Ferrous Sulfate [Iron] 325 mg PO DAILY 03/22/14 [History] Lactobacillus Acidophilus [Acidophilus] 1 each PO DAILY 03/22/14 [History] Levothyroxine 75 mcg PO ACBRK 03/22/14 [History] Multivitamin [Multi-Vitamin Daily] 1 each PO DAILY 03/22/14 [History] Sertraline HCl 200 mg PO DAILY 03/22/14 [History] Triamcinolone Acetonide [Triamcinolone Acetonide 0.1% Crm] 1 applic TOP BID [History] Vitamin E 400 unit PO DAILY 03/22/14 [History] traZODone 50 mg PO BEDTIME PRN 03/22/14 [History] Lutein 20 mg PO DAILY 03/23/14 [History] Amoxicillin/Potassium Clav [Augmentin 875-125 Tablet] 1 each PO BID #20 tablet 05/24/17 [Rx] Hydrocodone/Acetaminophen [[place] 5-325] 1 tab PO Q4H PRN #10 tablet 05/24/17 [Rx ] Acetaminophen [Tylenol] 650 mg PO ASDIRECTED PRN 06/09/17 [History] Esomeprazole Magnesium [Nexium 24Hr] 22.3 mg PO ASDIRECTED PRN 06/09/17 [History ] Gabapentin [Neurontin] 200 mg PO BID 06/09/17 [History] Ibuprofen [Advil] 200 mg PO ASDIRECTED PRN 06/09/17 [History] Valsartan/Hydrochlorothiazide [Valsartan-Hctz 80-12.5 mg Tab] 1 each PO DAILY [History] busPIRone [Buspar] 7.5 mg PO BID 06/09/17 [History] traMADol [Ultram] 50 mg PO BID PRN 06/09/17 [History] valACYclovir HCl [Valacyclovir] 1,000 mg PO TID 06/09/17 [History] Past Medical History HEENT History: Reports: Cataract, Impaired Vision Cardiovascular History: Reports: Hypertension Respiratory History: Reports: Bronchitis, Recurrent, Pneumonia, Recurrent Gastrointestinal History: Reports: GERD Genitourinary History: Reports: UTI, Recurrent [employer] DES[employer] History: Reports: None, Musculoskeletal History: Reports: Back Pain, Chronic Neurological History: Reports: Neuropathy, Peripheral Other Neuro History: NUMBNESS IN BALL OF LEFT FOOT AND LEFT TOES AND RIGHT GREAT TOE Psychiatric History: Reports: Depression Endocrine/Metabolic History: Reports: Hypothyroidism, Obesity/BMI 30+ Hematologic History: Reports: Blood Transfusion(s), Iron Deficiency Immunologic History: Reports: None Oncologic (Cancer) History: Reports: None Dermatologic History: Reports: None - Infectious Disease History Infectious Disease History: Reports: Chicken Pox, Measles - Past Surgical History Head Surgeries/Procedures: Reports: None Cardiovascular Surgical History: Reports: None GI Surgical History: Reports: Bariatric Procedure, Cholecystectomy, Colonoscopy , EGD, Hernia Repair/Other Female Surgical History: Reports: Breast Biopsy Endocrine Surgical History: Reports: None Neurological Surgical History: Reports: Scoliosis, Spinal Fusion Musculoskeletal Surgical History: Reports: Arthroscopic Knee, Arthroscopic Procedure, Carpal Tunnel, Knee Replacement, Shoulder Surgery Oncologic Surgical History: Reports: Biopsy of Breast, Lumpectomy Dermatological Surgical History: Reports: None Social & Family History - Family History Family Medical History: Unobtainable - Tobacco Use Smoking Status *Q: Never Smoker Second Hand Smoke Exposure: No - Caffeine Use Caffeine Use: Reports: Coffee - Alcohol Use Days Per Week of Alcohol Use: 1 - Recreational Drug Use Recreational Drug Use: No Drug Use in Last 12 Months: No H&P Review of Systems - Review of Systems: Review Of Systems: ROS reveals no pertinent complaints other than HPI. Exam - Exam Exam: See Below - Vital Signs Vital Signs: Last Vital Signs Temp 99.0 F 06/09/17 11:25 Pulse 112 H 06/09/17 11:25 Resp 17 06/09/17 11:25 BP 123/63 06/09/17 11:25 Pulse Ox 92 L 06/09/17 11:25 Weight: 73.936 kg - Exam General: Alert, Oriented, 4 HEENT: PERRLA, Hearing Intact, Mucosa Moist & [place], Nares Patent, Normal Nasal Septum, Posterior Pharynx Clear, Conjunctiva Clear, EOMI, EACs Clear, TMs Clear Neck: Supple, Trachea Midline, 2 Lungs: Clear to Auscultation, Normal Respiratory Effort Cardiovascular: Regular Rate, Regular Rhythm GI/Abdominal Exam: Normal Bowel Sounds, Soft, Non-Tender, No Organomegaly, No Distention, No Abnormal Bruit, No Mass, Pelvis Stable (Female) Exam: Normal External Exam, Normal Speculum Exam, Normal Bimanual Exam Rectal (Female) Exam: Normal Exam, Normal Rectal Tone Back Exam: Normal Inspection, Full Range of Motion, NT Extremities: Normal Inspection, Normal Range of Motion, Non-Tender, No Pedal Edema, Normal Capillary Refill Skin: Warm, Dry, Intact Neurological: Cranial Nerves Intact, Reflexes Equal Bilateral Neuro Extensive - Mental Status: Alert, Oriented x3, Normal Mood/Affect, Normal Cognition Neuro Extensive - Motor, Sensory, Reflexes: CN II-XII Intact, Normal Gait, Normal Reflexes Psychiatric: Labile Mood - Patient Data Result Diagrams: 06/09/17 11:55 06/09/17 16:05 Imaging Impressions Last 24 hrs: CXR-neg,CT head Neg *Q Meaningful Use (ADM) - VTE *Q VTE Criteria *Q: - Stroke *Q Stroke Criteria *Q: - AMI *Q AMI Criteria *Q: - Problem List (1) UTI (urinary tract infection) SNOMED Code(s): 87602067 ICD Code: N39.0 - URINARY TRACT INFECTION, SITE NOT SPECIFIED Status: Acute Current Visit: Yes Qualifiers: Encounter type: initial encounter (2) Acute kidney injury SNOMED Code(s): 51925739 ICD Code: N17.9 - ACUTE KIDNEY FAILURE, UNSPECIFIED Status: Acute Priority: High Current Visit: Yes (3) Altered awareness, transient SNOMED Code(s): 619041713 ICD Code: R40.4 - TRANSIENT ALTERATION OF AWARENESS Status: Acute Current Visit: Yes (4) HTN (hypertension) SNOMED Code(s): 63876571 ICD Code: I10 - ESSENTIAL (PRIMARY) HYPERTENSION Status: Acute Current Visit: Yes Qualifiers: Hypertension type: essential hypertension Qualified Code(s): I10 - Essential (primary) hypertension (5) Anxiety SNOMED Code(s): 06671440 ICD Code: F41.9 - ANXIETY DISORDER, UNSPECIFIED Status: Acute Current Visit: Yes (6) Depression SNOMED Code(s): 65136398 ICD Code: F32.9 - MAJOR DEPRESSIVE DISORDER, SINGLE EPISODE, UNSPECIFIED Status: Acute Current Visit: Yes Qualifiers: Depression Type: major depressive disorder Active/Remission status: currently active (7) Hypothyroid SNOMED Code(s): 17077645 ICD Code: E03.9 - HYPOTHYROIDISM, UNSPECIFIED Status: Chronic Priority: Medium Current Visit: Yes Qualifiers: Hypothyroidism type: acquired Qualified Code(s): E03.9 - Hypothyroidism, unspecified (8) Leucocytosis SNOMED Code(s): 475644336, 303840252 ICD Code: D72.829 - ELEVATED WHITE BLOOD CELL COUNT, UNSPECIFIED Status: Acute Current Visit: Yes (9) Hypoxia SNOMED Code(s): 866029745, 363594124 ICD Code: R09.02 - HYPOXEMIA Status: Acute Current Visit: Yes (10) Hypokalemia SNOMED Code(s): 05885249 ICD Code: E87.6 - HYPOKALEMIA Status: Acute Current Visit: Yes Problem List Initiated/Reviewed/Updated: Yes Orders Last 24hrs: Medication Orders Potassium Chloride/Sodium Chloride (Normal Saline With 20 Meq Kcl) 1,000 mls @ 500 mls/hr IV ASDIRECTED BETHANY Last Admin: 06/09/17 13:20 Dose: 500 mls/hr Sodium Chloride (Normal Saline) 1,000 mls @ 150 mls/hr IV ASDIRECTED BETHANY Levothyroxine Sodium (Levothyroxine) 75 mcg PO ACBRK [facility] Multivitamins/Minerals/Vitamin C (Tab-A-Brett) tab PO DAILY BETHANY Non-Formulary Medication (Lutein [Lutein]) 20 mg PO DAILY BETHANY Non-Formulary Medication (Vitamin E [Vitamin E]) 400 unit PO DAILY BETHANY Sertraline HCl (Zoloft) 200 mg PO DAILY BETHANY Sodium Chloride (Saline Flush) 10 ml FLUSH ASDIRECTED PRN PRN Reason: Keep Vein Open Last Admin: 06/09/17 12:20 Dose: 10 ml Tramadol HCl (Ultram) 50 mg PO DAILY PRN PRN Reason: pain Trazodone HCl (Trazodone) 50 mg PO BEDTIME PRN PRN Reason: Insomnia Triamcinolone Acetonide (Triamcinolone Acetonide 0.1% Crm) gm TOP BID [facility] Assessment/Plan Comment:: I have reviewed the history extensively and spoke with primary care physician Afsaneh Lott. She confers that the symptoms are fairly new. and so is her renal insufficiency. Urine does show some white cells,leucocytes, and because of it I feel that perhaps the source of infection is the urinary tract.Meningitis uis a consideration,but I have no physical signs to support that.I Will obtain blood cultures and urine cultures,and in the meantime I have elected to treat her with Vancomycin and Rocephin awaiting those tests results. We'll continue with IV fluid resuscitation along with potassium replacement. I have discontinued or held most of the home medications including narcotics, gabapentin and Valtrex. I 'll use when necessary benzodiazepine to help with delirium or anxiety.
[2017-06-09] MEDS ORDERED: Levothyroxine 75 MCG Tab PO SCH (13:45)
--- NOTE | 2017-06-09 13:59 | CT ---
INDICATION: Confusion, weakness for a few days. Slurred speech, generalized weakness. CT HEAD WITHOUT CONTRAST: Serial contiguous 2.5 and 5-mm sections were obtained through the brain without contrast 06/09/2017. No comparisons were available. Total Exam DLP = 845.81 mGy-cm. Paranasal sinuses and mastoid air cells appear to be well aerated. No definite cranial abnormality is seen. Calcifications are noted in the internal carotid arteries and left vertebral artery. There is suggestion of low-density area in the anterior limb of the left internal capsule, raising question of a lacunar infarct or possibly an evolving lacunar infarct in that area. A tiny area of low-density in the left basal ganglia could represent a very tiny lacunar infarct or possibly a vascular structure. Mild prominence of sulci in the frontal lobes suggests the possibility of mild frontal cortical atrophy. There may be also some minimal temporal cortical atrophy. No bleeding site or hematoma or other finding to strongly suggest an acute intracranial abnormality is identified. No shift of midline structures or ventricular abnormalities were identified. IMPRESSION: 1. No definite acute intracranial abnormality. However, an evolving lacunar infarct could be present in the anterior limb of the left internal capsule. 2. Frontal cortical and possibly mild temporal lobe cortical atrophy. 3. Internal carotid artery calcifications with left vertebral artery calcification minimal. 4. Possible tiny lacunar infarct versus a vascular structure in the left basal ganglia. Report was called to Dr. Edwards at 1237 hours, 06/09/2017. [facility]
--- NOTE | 2017-06-09 15:11 | CR ---
INDICATION: Hypoxia. High white blood count. CHEST: Two AP upright views of the chest were obtained 06/09/2017. No comparisons were available. A very poor inspiration is noted, emphasizing the heart, which most likely is within normal limits in size. However, a full inspiration PA view may be helpful for further evaluation of the heart. The aorta is somewhat tortuous. A definite active infiltrate or effusion was not identified. A fusion is noted in the mid cervical spine. IMPRESSION: No definite acute process. Study somewhat limited by poor inspiration. MTDD
[2017-06-09] MEDS: Potassium Chloride 20 MEQ Tab.ER PO SCH ×2 (16:00→23:30)
[2017-06-09] MEDS ORDERED: cefTRIAXone 1,000 MG in Sodium Chloride 0.9% 50 ML IV ONE (16:00)
[2017-06-09] MEDS ORDERED: ESOMEPRAZOLE MAGNESIUM 22.3 MG PO PRN (17:26)
[2017-06-09] MEDS ORDERED: Sodium Chloride 0.9% 1,000 ML IV ONE (20:20)
[2017-06-09] MEDS ORDERED: Triamcinolone Acetonide 0.1% Crm 15 GM Tube TOP SCH (21:00)
[2017-06-09 23:26] VITALS: BP 81/47
[2017-06-10] MEDS ORDERED: Sertraline 100 MG Tab PO SCH (09:00)
[2017-06-10] MEDS ORDERED: Vitamin E (dl-alpha-tocopherol acetate) 400 Unit Cap PO SCH (09:00)
[2017-06-10] MEDS ORDERED: Multivitamin Tab PO SCH (09:00)
--- NOTE | 2017-06-10 10:31 | DISCH ---
DISCHARGE DATE: 06/09/2017 REASON FOR ADMISSION: 1. Altered mental status. 2. Acute kidney injury. 3. Hypothyroidism. 4. Depression. 5. Anxiety. 6. Hypertension. 7. Leukocytosis. 8. Hypoxia. 9. Hypokalemia. 10.Urinary tract infection. DISCHARGE DIAGNOSES: 1. Altered mental status. 2. Acute kidney injury. 3. Hypothyroidism. 4. Depression. 5. Anxiety. 6. Hypertension. 7. Leukocytosis. 8. Hypoxia. 9. Hypokalemia. 10.Urinary tract infection. 11.Rule out septic shock. BRIEF HISTORY: This 67-year-old female came into the ER with confusion and was found to have renal failure and hypokalemia. She was started on IV fluids. White cell count was very high on admission and had a low-grade fever of 100. She was admitted to the floor, but over the course of the afternoon, continued to deteriorate with vital signs erratic and blood pressures that went down to 80 systolic. She was alert with a normal urine output however. Urine culture was set up, so was a blood culture. Chest x-ray was unremarkable. She got one dose of Rocephin and one dose of vancomycin, but I deemed that she needed further care and called the ICU in [place] and transferred to [place]. She was transferred by [facility] ambulance in stable condition. I spent less than 30 minutes in the transfer of the patient. /[id number] MELIZA/MEHREEN
== END 2017-06-09 21:00 | DRG 683 ==
LOC: FB.ED 11:25 → FB.MS 13:37
PROVIDERS: ADMIT Family Medicine; ATTEND Family Medicine
DX: N17.9 Acute kidney failure, unspecified (principal); E87.5 Hyperkalemia; E87.1 Hypo-osmolality and hyponatremia; D72.829 Elevated white blood cell count, unspecified; D64.9 Anemia, unspecified; N39.0 Urinary tract infection, site not specified; R41.0 Disorientation, unspecified; E03.9 Hypothyroidism, unspecified; F32.9 Major depressive disorder, single episode, unspecified; F41.9 Anxiety disorder, unspecified; R09.02 Hypoxemia; E87.6 Hypokalemia; K21.9 Gastro-esophageal reflux disease without esophagitis; G62.9 Polyneuropathy, unspecified; I10 Essential (primary) hypertension; Z79.899 Other long term (current) drug therapy
CPT/HCPCS: 36415; 51702; 70450; 71010; 80053; 80305; 81001; 83605; 83735; 84484; 85027; 87040 ×2; 87077 ×2; 87086; 87186 ×2; 96360; 99284; 99285; A9270 ×2; G0480; J3480; J7050; 80048; 83880; 85025; 85379; 87088; 93005; J0696; J3370; J7040

== ENCOUNTER 2017-06-24 09:12 | Inpatient (IN) | payer MEDICARE, OTHER ==
[2017-07-02] MEDS: oxyCODONE 5 MG Tab PO PRN ×3 (14:09→22:37)
[2017-07-02] MEDS ORDERED: Acetaminophen 325 MG Tab PO PRN (17:03)
[2017-07-02] MEDS ORDERED: oxyCODONE 5 MG Tab PO PRN (17:03)
[2017-07-02] MEDS: Levofloxacin 250 MG Tab PO SCH (18:37)
[2017-07-02] MEDS: Pantoprazole 40 MG Tab.CR PO SCH (18:41)
[2017-07-02] MEDS: busPIRone 15 MG Tab PO SCH (20:25)
[2017-07-02] MEDS ORDERED: Gabapentin 100 MG Cap PO SCH (21:00)
[2017-07-02] MEDS: Docusate Sodium 100 MG Cap PO SCH (21:00)
[2017-07-02] MEDS: traZODone 50 MG Tab PO PRN (22:37)
[2017-07-03] MEDS: Levothyroxine 75 MCG Tab PO SCH (07:44)
[2017-07-03] MEDS: Pantoprazole 40 MG Tab.CR PO SCH ×2 (07:44→17:57)
--- NOTE | 2017-07-03 08:47 | PCM.HP ---
H&P History of Present Illness - General Date of Service: 07/03/17 Admit Problem/Dx: Admission Diagnosis/Problem Admission Diagnosis/Problem Septicemia Source of Information: Patient, Old Records - History of Present Illness Initial Comments - Free Text/Narative: 67-year-old female admitted to transitional care for weakness strengthening, and physical therapy. She was admitted at [place] for sepsis due to urinary tract infection. 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 She was in septic shock. The abscess grew Doreen. She also had enterococcus growing from retroperitoneal abscess. She did FER drain for this which was taken out before discharge. She had a complicated course of the hospital is now improved and is being admitted for strengthening due to generalized weakness and physical deconditioning. She complains of chronic back pain on the left side that goes down to the leg. Previously took oxycodone 10 mg every 4 hours of hospital this was reduced to 5 mg upon discharge and she is questioning that. She denies any weakness, fever, chills, cough, shortness of breath or chest pain. She has a previous history of hypertension, chronic back pain, anxiety and depression, and hypothyroidism previously been stable. sciatic Pain Score (Numeric/FACES): 6 - Related Data Allergies/Adverse Reactions: Allergies Allergy/AdvReac Type Severity Reaction Status Date / Time minocycline [Minocycline] Allergy Swelling Verified 06/09/17 11:37 Home Medications: Home Meds Calcium Carb/D3/Mag AA Chelate [Coral Calcium Capsule] 1 each PO DAILY 03/22/14 [History] Ergocalciferol (Vitamin D2) [Vitamin D] 400 unit PO DAILY 03/22/14 [History] Levothyroxine 75 mcg PO ACBRK 03/22/14 [History] Sertraline HCl 200 mg PO DAILY 03/22/14 [History] traZODone 50 mg PO BEDTIME PRN 03/22/14 [History] Acetaminophen [Tylenol] 650 mg PO Q4H PRN 06/09/17 [History] Gabapentin [Neurontin] 200 mg PO BID 06/09/17 [History] busPIRone [Buspar] 7.5 mg PO BID 06/09/17 [History] 0.9 % Sodium Chloride [Sodium Chloride] 5 ml IJ DAILY 07/02/17 [History] Docusate Sodium [Colace] 100 mg PO BID 07/02/17 [History] Esomeprazole [NexIUM] 20 mg PO BIDAC 07/02/17 [History] Fluconazole [Diflucan] 400 mg PO DAILY 07/02/17 [History] Levofloxacin 750 mg PO Q48H 07/02/17 [History] amLODIPine [Norvasc] 5 mg PO DAILY 07/02/17 [History] oxyCODONE 5 mg PO Q4H PRN 07/02/17 [History] Past Medical History HEENT History: Reports: Cataract, Impaired Vision Other HEENT History: ("eyes shift") Cardiovascular History: Reports: Hypertension Respiratory History: Reports: Bronchitis, Recurrent, Pneumonia, Recurrent Gastrointestinal History: Reports: GERD Genitourinary History: Reports: Acute Renal Failure, Renal Disease, UTI, Recurrent, Other (See Below) Other Genitourinary History: lef tkidney removed 05/2017 [employer] History: Reports: None, Musculoskeletal History: Reports: Back Pain, Chronic Neurological History: Reports: Neuropathy, Peripheral Other Neuro History: NUMBNESS IN BALL OF LEFT FOOT AND LEFT TOES AND RIGHT GREAT TOE Psychiatric History: Reports: Depression Endocrine/Metabolic History: Reports: Hypothyroidism, Obesity/BMI 30+ Hematologic History: Reports: Blood Transfusion(s), Iron Deficiency Immunologic History: Reports: None Oncologic (Cancer) History: Reports: None Dermatologic History: Reports: None - Infectious Disease History Infectious Disease History: Reports: Chicken Pox - Past Surgical History Head Surgeries/Procedures: Reports: None Cardiovascular Surgical History: Reports: None GI Surgical History: Reports: Bariatric Procedure, Cholecystectomy, Colonoscopy , EGD, Hernia Repair/Other, Other (See Below) Other GI Surgeries/Procedures: apron removal, panniculectomy Female Surgical History: Reports: Breast Biopsy Endocrine Surgical History: Reports: None Neurological Surgical History: Reports: Scoliosis, Spinal Fusion Musculoskeletal Surgical History: Reports: Arthroscopic Knee, Arthroscopic Procedure, Carpal Tunnel, Knee Replacement, Shoulder Surgery Oncologic Surgical History: Reports: Biopsy of Breast, Lumpectomy Dermatological Surgical History: Reports: None Social & Family History - Family History Family Medical History: Unobtainable - Tobacco Use Smoking Status *Q: Former Smoker Used Tobacco, but Quit: Yes Month Tobacco Last Used: 1990 Second Hand Smoke Exposure: No - Caffeine Use Caffeine Use: Reports: Coffee - Alcohol Use Days Per Week of Alcohol Use: 1 Number of Drinks Per Day: 1 Total Drinks Per Week: 1 - Recreational Drug Use Recreational Drug Use: No Drug Use in Last 12 Months: No H&P Review of Systems - Review of Systems: Review Of Systems: ROS reveals no pertinent complaints other than HPI. Exam - Exam Exam: See Below - Vital Signs Vital Signs: Last Vital Signs Temp 98.7 F 07/02/17 12:00 Pulse 74 07/02/17 12:00 Resp 18 07/02/17 12:00 BP 114/57 L 07/02/17 12:00 Pulse Ox 95 07/02/17 12:00 Weight: 70.67 kg - Exam General: Alert, Oriented, 4 HEENT: PERRLA, Hearing Intact, Mucosa Moist & [place], Nares Patent, Normal Nasal Septum, Posterior Pharynx Clear, Conjunctiva Clear, EOMI, EACs Clear, TMs Clear Neck: Supple, Trachea Midline, 2 Lungs: Clear to Auscultation, Normal Respiratory Effort Cardiovascular: Regular Rate, Regular Rhythm GI/Abdominal Exam: Normal Bowel Sounds, Soft, Non-Tender, No Organomegaly, No Distention, No Abnormal Bruit, No Mass, Pelvis Stable (Female) Exam: Normal External Exam, Normal Speculum Exam, Normal Bimanual Exam Rectal (Female) Exam: Normal Exam, Normal Rectal Tone Back Exam: Normal Inspection, Full Range of Motion, Muscle Spasm, Paraspinal Tenderness, Vertebral Tenderness Extremities: Normal Inspection, Normal Range of Motion, Non-Tender, No Pedal Edema, Normal Capillary Refill Skin: Warm, Dry, Intact Neurological: Cranial Nerves Intact, Reflexes Equal Bilateral Neuro Extensive - Mental Status: Alert, Oriented x3, Normal Mood/Affect, Normal Cognition Neuro Extensive - Motor, Sensory, Reflexes: CN II-XII Intact, Normal Gait, Normal Reflexes Psychiatric: Alert, Normal Affect, Normal Mood *Q Meaningful Use (ADM) - VTE *Q VTE Criteria *Q: - Stroke *Q Stroke Criteria *Q: - AMI *Q AMI Criteria *Q: - Problem List (1) Chronic back pain SNOMED Code(s): 345768018 ICD Code: M54.9 - DORSALGIA, UNSPECIFIED; G89.29 - OTHER CHRONIC PAIN Status: Acute Current Visit: Yes Qualifiers: Back pain location: low back pain Sciatica laterality: sciatica of left side (2) H/O unilateral nephrectomy SNOMED Code(s): 39457165556811 ICD Code: Z90.5 - ACQUIRED ABSENCE OF KIDNEY Status: Acute Current Visit : Yes (3) H/O splenectomy SNOMED Code(s): 487684975 ICD Code: Z90.81 - ACQUIRED ABSENCE OF SPLEEN Status: Acute Current Visit : Yes (4) Depression SNOMED Code(s): 40314204 ICD Code: F32.9 - MAJOR DEPRESSIVE DISORDER, SINGLE EPISODE, UNSPECIFIED Status: Acute Current Visit: No Qualifiers: Depression Type: major depressive disorder Active/Remission status: currently active (5) HTN (hypertension) SNOMED Code(s): 74542774 ICD Code: I10 - ESSENTIAL (PRIMARY) HYPERTENSION Status: Acute Current Visit: No Qualifiers: Hypertension type: essential hypertension (6) UTI (urinary tract infection) SNOMED Code(s): 71762636 ICD Code: N39.0 - URINARY TRACT INFECTION, SITE NOT SPECIFIED Status: Acute Current Visit: No Qualifiers: Encounter type: sequela (7) Hypothyroid SNOMED Code(s): 46668239 ICD Code: E03.9 - HYPOTHYROIDISM, UNSPECIFIED Status: Chronic Priority: Medium Current Visit: No Qualifiers: Hypothyroidism type: unspecified Qualified Code(s): E03.9 - Hypothyroidism , unspecified Problem List Initiated/Reviewed/Updated: Yes Orders Last 24hrs: Active Orders 24 hr Category Date Time Status Admission Status [Patient Status] [ADT] Routine ADT 07/02/17 11:50 Active Activity as Tolerated [RC] .Routine Care 07/02/17 13:42 Active OT Evaluation and Treatment [CONS] Routine Cons 07/02/17 13:42 Active PT Evaluation and Treatment [CONS] Routine Cons 07/02/17 13:42 Active Regular Diet [DIET] Diet 07/02/17 Dinner Active Acetaminophen [Tylenol] Med 07/02/17 17:03 Active 650 mg PO Q4H PRN Calcium Carbonate/Vitamin D3 [Calcium Carbonate/Vitamin Med 07/03/17 09:00 Active D 1250 MG-200 Unit] 1 tab PO DAILY Cholecalciferol (Vitamin D3) [Vitamin D3] Med 07/03/17 09:00 Active 1,000 units PO DAILY Docusate Sodium [Colace] Med 07/02/17 21:00 Active 100 mg PO BID Fluconazole [Diflucan] Med 07/03/17 09:00 Active 400 mg PO DAILY Gabapentin [Neurontin] Med 07/02/17 21:00 Active 200 mg PO BID Levofloxacin [Levaquin] Med 07/02/17 18:00 Active 750 mg PO Q48H Levothyroxine Med 07/03/17 07:30 Active 75 mcg PO ACBRK Pantoprazole [ProTONIX] Med 07/02/17 17:30 Active 40 mg PO BIDAC Sertraline [Zoloft] Med 07/03/17 09:00 Active 200 mg PO DAILY Sodium Chloride 0.9% [Saline Flush] Med 07/03/17 09:00 Active 5 ml IV DAILY amLODIPine [Norvasc] Med 07/03/17 09:00 Active 5 mg PO DAILY busPIRone [Buspar] Med 07/02/17 21:00 Active 7.5 mg PO BID oxyCODONE Med 07/02/17 13:53 Active 5 mg PO Q4H PRN oxyCODONE Med 07/02/17 17:03 Active 5 mg PO Q4H PRN traZODone Med 07/02/17 17:03 Active 50 mg PO BEDTIME PRN Resuscitation Status Routine Resus Stat 07/03/17 08:11 Ordered Medication Orders Acetaminophen (Tylenol) 650 mg PO Q4H PRN PRN Reason: Pain (mild 1-3) Amlodipine Besylate (Norvasc) 5 mg PO DAILY [facility] Buspirone HCl (Buspar) 7.5 mg PO BID [facility] Last Admin: 07/02/17 20:25 Dose: 7.5 mg Calcium Carbonate (Calcium Carbonate/Vitamin D 1250 Mg-200 Unit) 1 tab PO DAILY [facility] Cholecalciferol (Vitamin D3) 1,000 units PO DAILY [facility] Docusate Sodium (Colace) 100 mg PO BID [facility] Last Admin: 07/02/17 21:00 Dose: 100 mg Fluconazole (Diflucan) 400 mg PO DAILY [facility] Gabapentin (Neurontin) 200 mg PO BID [facility] Last Admin: 07/02/17 21:00 Dose: 200 mg Levofloxacin (Levaquin) 750 mg PO Q48H [facility] Last Admin: 07/02/17 18:37 Dose: 750 mg Levothyroxine Sodium (Levothyroxine) 75 mcg PO ACBRK [facility] Last Admin: 07/03/17 07:44 Dose: 75 mcg Oxycodone HCl (Oxycodone) 5 mg PO Q4H PRN PRN Reason: Pain Last Admin: 07/02/17 22:37 Dose: 5 mg Admin: 07/02/17 18:37 Dose: 5 mg Admin: 07/02/17 14:09 Dose: 5 mg Oxycodone HCl (Oxycodone) 5 mg PO Q4H PRN PRN Reason: Pain (moderate 4-6) Pantoprazole Sodium (Protonix) 40 mg PO BIDAC [facility] Last Admin: 07/03/17 07:44 Dose: 40 mg Admin: 07/02/17 18:41 Dose: 40 mg Sertraline HCl (Zoloft) 200 mg PO DAILY [facility] Sodium Chloride (Saline Flush) 5 ml IV DAILY [facility] Trazodone HCl (Trazodone) 50 mg PO BEDTIME PRN PRN Reason: Insomnia Last Admin: 07/02/17 22:37 Dose: 50 mg Assessment/Plan Comment:: I will continue with instructions from discharge of oxycodone 5 mg Q4 hours. I will however increase the dose of level of gabapentin to help the pain. I believe she'll also benefit from physical therapy. she also continue levaquin orally until 14 july, and doreen for a total of 27 days from yesterday. she has a follow-up with infectious disease on the in 2 weeks time at which visit she received immunizations because of the nephrectomy and splenectomy. the rest of the home medications to be resumed today.
[2017-07-03] MEDS ORDERED: Sodium Chloride 0.9% 10 ML Syringe IV SCH (09:00)
[2017-07-03] MEDS: Calcium Carbonate/Vitamin D3 1250 MG-200 Unit Tab PO SCH (10:09)
[2017-07-03] MEDS: busPIRone 15 MG Tab PO SCH ×2 (10:09→20:19)
[2017-07-03] MEDS: Fluconazole 100 MG Tab PO SCH (10:09)
[2017-07-03] MEDS: Docusate Sodium 100 MG Cap PO SCH ×2 (10:09→20:21)
[2017-07-03] MEDS: Cholecalciferol (Vitamin D3) 1,000 Unit Tab PO SCH (10:10)
[2017-07-03] MEDS: Sertraline 100 MG Tab PO SCH (10:10)
[2017-07-03] MEDS: Gabapentin 300 MG Cap PO SCH ×3 (10:10→20:22)
[2017-07-03] MEDS: amLODIPine 5 MG Tab PO SCH (10:10)
[2017-07-03] MEDS: oxyCODONE 5 MG Tab PO PRN ×3 (10:16→20:55)
[2017-07-04] MEDS: Levothyroxine 75 MCG Tab PO SCH (06:40)
[2017-07-04] MEDS: Pantoprazole 40 MG Tab.CR PO SCH ×2 (06:40→17:37)
[2017-07-04] MEDS: oxyCODONE 5 MG Tab PO PRN ×3 (06:55→17:42)
[2017-07-04] MEDS: busPIRone 15 MG Tab PO SCH ×2 (09:05→20:59)
[2017-07-04] MEDS: amLODIPine 5 MG Tab PO SCH (09:06)
[2017-07-04] MEDS: Sertraline 100 MG Tab PO SCH (09:06)
[2017-07-04] MEDS: Cholecalciferol (Vitamin D3) 1,000 Unit Tab PO SCH (09:06)
[2017-07-04] MEDS: Fluconazole 100 MG Tab PO SCH (09:06)
[2017-07-04] MEDS: Gabapentin 300 MG Cap PO SCH ×3 (09:06→21:00)
[2017-07-04] MEDS: Calcium Carbonate/Vitamin D3 1250 MG-200 Unit Tab PO SCH (09:07)
[2017-07-04] MEDS: Docusate Sodium 100 MG Cap PO SCH ×2 (09:07→21:00)
[2017-07-04] MEDS: Levofloxacin 250 MG Tab PO SCH (17:38)
[2017-07-05] MEDS: oxyCODONE 5 MG Tab PO PRN ×2 (02:52→12:15)
[2017-07-05] MEDS: Levothyroxine 75 MCG Tab PO SCH (06:58)
[2017-07-05] MEDS: Pantoprazole 40 MG Tab.CR PO SCH ×2 (06:58→16:55)
[2017-07-05] MEDS: busPIRone 15 MG Tab PO SCH ×2 (09:00→21:03)
[2017-07-05] MEDS: Gabapentin 300 MG Cap PO SCH ×3 (09:01→21:03)
[2017-07-05] MEDS: Docusate Sodium 100 MG Cap PO SCH ×2 (09:01→21:03)
[2017-07-05] MEDS: Fluconazole 100 MG Tab PO SCH (09:02)
[2017-07-05] MEDS: Calcium Carbonate/Vitamin D3 1250 MG-200 Unit Tab PO SCH (09:02)
[2017-07-05] MEDS: amLODIPine 5 MG Tab PO SCH (09:03)
[2017-07-05] MEDS: Cholecalciferol (Vitamin D3) 1,000 Unit Tab PO SCH (09:03)
[2017-07-05] MEDS: Sertraline 100 MG Tab PO SCH (09:04)
[2017-07-05] MEDS: traZODone 50 MG Tab PO PRN (21:03)
[2017-07-06] MEDS: Levothyroxine 75 MCG Tab PO SCH (06:49)
[2017-07-06] MEDS: Pantoprazole 40 MG Tab.CR PO SCH ×2 (06:49→17:26)
[2017-07-06] MEDS: busPIRone 15 MG Tab PO SCH ×2 (08:27→20:42)
[2017-07-06] MEDS: Calcium Carbonate/Vitamin D3 1250 MG-200 Unit Tab PO SCH (08:28)
[2017-07-06] MEDS: Gabapentin 300 MG Cap PO SCH ×3 (08:28→20:42)
[2017-07-06] MEDS: Fluconazole 100 MG Tab PO SCH (08:28)
[2017-07-06] MEDS: Docusate Sodium 100 MG Cap PO SCH ×2 (08:28→20:42)
[2017-07-06] MEDS: amLODIPine 5 MG Tab PO SCH (08:28)
[2017-07-06] MEDS: Sertraline 100 MG Tab PO SCH (08:29)
[2017-07-06] MEDS: Cholecalciferol (Vitamin D3) 1,000 Unit Tab PO SCH (08:29)
[2017-07-06] MEDS: oxyCODONE 5 MG Tab PO PRN ×2 (08:35→19:51)
[2017-07-06] MEDS: Levofloxacin 250 MG Tab PO SCH (17:25)
[2017-07-07] MEDS: Pantoprazole 40 MG Tab.CR PO SCH ×2 (07:08→16:43)
[2017-07-07] MEDS: Levothyroxine 75 MCG Tab PO SCH (07:08)
[2017-07-07] MEDS: Docusate Sodium 100 MG Cap PO SCH ×2 (09:15→20:09)
[2017-07-07] MEDS: Calcium Carbonate/Vitamin D3 1250 MG-200 Unit Tab PO SCH (09:15)
[2017-07-07] MEDS: Cholecalciferol (Vitamin D3) 1,000 Unit Tab PO SCH (09:16)
[2017-07-07] MEDS: busPIRone 15 MG Tab PO SCH ×2 (09:16→20:08)
[2017-07-07] MEDS: amLODIPine 5 MG Tab PO SCH (09:16)
[2017-07-07] MEDS: Gabapentin 300 MG Cap PO SCH ×3 (09:16→20:09)
[2017-07-07] MEDS: Fluconazole 100 MG Tab PO SCH (09:16)
[2017-07-07] MEDS: Sertraline 100 MG Tab PO SCH (09:17)
[2017-07-07] MEDS: oxyCODONE 5 MG Tab PO PRN (13:43)
[2017-07-07] MEDS: traZODone 50 MG Tab PO PRN (20:14)
[2017-07-08] MEDS: oxyCODONE 5 MG Tab PO PRN (04:20)
[2017-07-08] MEDS: Pantoprazole 40 MG Tab.CR PO SCH (07:38)
[2017-07-08] MEDS: Levothyroxine 75 MCG Tab PO SCH (07:38)
[2017-07-08 07:50] VITALS: BP 126/57
--- NOTE | 2017-07-08 08:28 | PCM.PN ---
- General Info Date of Service: 07/08/17 Admission Dx/Problem (Free Text): 67-year-old female with history of splenectomy and nephrectomy from abscess kidney from a UTI. Patient here for rehabilitation. Doing well and will go home today and follow-up with PT/OT outpatient. - Patient Data Vitals - Most Recent: Last Vital Signs Temp 97.8 F 07/08/17 07:49 Pulse 65 07/08/17 07:49 Resp 18 07/08/17 07:49 BP 126/57 L 07/08/17 07:49 Pulse Ox 96 07/08/17 07:49 Weight - Most Recent: 155 lb 12.8 oz Med Orders - Current: Current Medications Acetaminophen (Tylenol) 650 mg PO Q4H PRN PRN Reason: Pain (mild 1-3) Last Admin: 07/06/17 06:54 Dose: 650 mg Amlodipine Besylate (Norvasc) 5 mg PO DAILY [facility] Last Admin: 07/07/17 09:16 Dose: 5 mg Buspirone HCl (Buspar) 7.5 mg PO BID [facility] Last Admin: 07/07/17 20:08 Dose: 7.5 mg Calcium Carbonate (Calcium Carbonate/Vitamin D 1250 Mg-200 Unit) 1 tab PO DAILY [facility] Last Admin: 07/07/17 09:15 Dose: 1 tab Cholecalciferol (Vitamin D3) 1,000 units PO DAILY [facility] Last Admin: 07/07/17 09:16 Dose: 1,000 units Docusate Sodium (Colace) 100 mg PO BID [facility] Last Admin: 07/07/17 20:09 Dose: 100 mg Fluconazole (Diflucan) 400 mg PO DAILY [facility] Stop: 07/29/17 09:01 Last Admin: 07/07/17 09:16 Dose: 400 mg Gabapentin (Neurontin) 300 mg PO TID [facility] Last Admin: 07/07/17 20:09 Dose: 300 mg Levofloxacin (Levaquin) 750 mg PO Q48H [facility] Stop: 07/12/17 18:01 Last Admin: 07/06/17 17:25 Dose: 750 mg Levothyroxine Sodium (Levothyroxine) 75 mcg PO ACBRK [facility] Last Admin: 07/08/17 07:38 Dose: 75 mcg Oxycodone HCl (Oxycodone) 10 mg PO Q4H PRN PRN Reason: Pain Last Admin: 07/08/17 04:20 Dose: 10 mg Pantoprazole Sodium (Protonix) 40 mg PO BIDAC [facility] Last Admin: 07/08/17 07:38 Dose: 40 mg Sertraline HCl (Zoloft) 200 mg PO DAILY [facility] Last Admin: 07/07/17 09:17 Dose: 200 mg Trazodone HCl (Trazodone) 50 mg PO BEDTIME PRN PRN Reason: Insomnia Last Admin: 07/07/17 20:14 Dose: 50 mg Discontinued Medications Gabapentin (Neurontin) 200 mg PO BID [facility] Last Admin: 07/02/17 21:00 Dose: 200 mg Oxycodone HCl (Oxycodone) 5 mg PO Q4H PRN PRN Reason: Pain Last Admin: 07/04/17 13:39 Dose: 5 mg Oxycodone HCl (Oxycodone) 5 mg PO Q4H PRN PRN Reason: Pain (moderate 4-6) Sodium Chloride (Saline Flush) 5 ml IV DAILY [facility] Last Admin: 07/02/17 18:36 Dose: Not Given Sodium Chloride (Saline Flush) 5 ml IV DAILY [facility] Last Admin: 07/03/17 11:14 Dose: Not Given - Exam General: Alert, Oriented, Cooperative Lungs: Normal Respiratory Effort Skin: Other (Incision left lower abdomen healed nicely.) - Problem List & Annotations (1) Chronic back pain SNOMED Code(s): 217084225 Code(s): M54.9 - DORSALGIA, UNSPECIFIED; G89.29 - OTHER CHRONIC PAIN Status : Acute Current Visit: Yes Qualifiers: Back pain location: low back pain Sciatica laterality: sciatica of left side (2) H/O splenectomy SNOMED Code(s): 312003691 Code(s): Z90.81 - ACQUIRED ABSENCE OF SPLEEN Status: Acute Current Visit : Yes (3) H/O unilateral nephrectomy SNOMED Code(s): 33733598345778 Code(s): Z90.5 - ACQUIRED ABSENCE OF KIDNEY Status: Acute Current Visit: Yes - Problem List Review Problem List Initiated/Reviewed/Updated: Yes - Plan Plan:: 1. Discharge to home 2. Focal, is all until July 29. 3. 3 more doses of Levaquin 750 every other day. 4. Oxycodone 5 mg every 4 hours when necessary. 5. Follow-up with her primary provider 7-10 days.
--- NOTE | 2017-07-08 08:36 | PCM.DCSUM1 ---
Discharge Summary - Hospital Course Free Text/Narrative:: Wing bed course-patient has some back pain and was on oxycodone 10 mg every 4 hours and switch to 5 mg here. She did not tolerate that's what increased to 10 per she is actually doing better now. She did good in PT/OT. Her incision for her nephrectomy, splenectomy healing nicely. She'll be discharged to home. She' ll follow-up with her primary provider in 7-10 days and have PT/OT outpatient. Brief History: 67-year-old female admitted to transitional care for weakness strengthening, and physical therapy. She was admitted at [place] for sepsis due to urinary tract infection. 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 She was in septic shock. The abscess grew Doreen. She also had enterococcus growing from retroperitoneal abscess. She did FER drain for this which was taken out before discharge. She had a complicated course of the hospital is now improved and is being admitted for strengthening due to generalized weakness and physical deconditioning. She complains of chronic back pain on the left side that goes down to the leg. Previously took oxycodone 10 mg every 4 hours of hospital this was reduced to 5 mg upon discharge and she is questioning that. She denies any weakness, fever, chills, cough, shortness of breath or chest pain. She has a previous history of hypertension, chronic back pain, anxiety and depression, and hypothyroidism previously been stable. - Discharge Data Discharge Date: 07/08/17 Discharge Disposition: Home, Self-Care 01 Condition: Good - Discharge Diagnosis/Problem(s) (1) Chronic back pain SNOMED Code(s): 141352685 ICD Code: M54.9 - DORSALGIA, UNSPECIFIED; G89.29 - OTHER CHRONIC PAIN Status: Acute Current Visit: Yes Qualifiers: Back pain location: low back pain Sciatica laterality: sciatica of left side (2) H/O splenectomy SNOMED Code(s): 125905938 ICD Code: Z90.81 - ACQUIRED ABSENCE OF SPLEEN Status: Acute Current Visit : Yes (3) H/O unilateral nephrectomy SNOMED Code(s): 44596157270551 ICD Code: Z90.5 - ACQUIRED ABSENCE OF KIDNEY Status: Acute Current Visit : Yes - Patient Summary/Data Consults: Consultations 07/02/17 13:42 OT Evaluation and Treatment [CONS] Routine Please Evaluate and Treat. OT Reason for Consult: Strengthening This query below is only for informational purposes and is not editable. Admission Diagnosis/Problem: Septicemia PT Evaluation and Treatment [CONS] Routine Please Evaluate and Treat. PT Reason for Consult: Strengthening This query below is only for informational purposes and is not editable. Admission Diagnosis/Problem: Septicemia - Patient Instructions Diet: Regular Diet as Tolerated Activity: As Tolerated Driving: May Drive Today Showering/Bathing: May Shower Notify Provider of: Fever, Increased Pain Other/Special Instructions: 1. PT/OT at [facility] as an outpatient. 2. Recheck with Danny Lott in 7-10 days - Discharge Plan Prescriptions/Med Rec: amLODIPine [Norvasc] 5 mg PO DAILY #30 tablet Fluconazole [Diflucan] 400 mg PO DAILY #42 tablet Gabapentin [Neurontin] 300 mg PO TID #90 cap Levofloxacin 750 mg PO Q48H #3 tablet oxyCODONE 5 mg PO Q4H PRN #20 tablet PRN Reason: Pain Sertraline [Zoloft] 200 mg PO DAILY #60 tablet Home Medications: Home Meds Calcium Carb/D3/Mag AA Chelate [Coral Calcium Capsule] 1 each PO DAILY 03/22/14 [History] Ergocalciferol (Vitamin D2) [Vitamin D] 400 unit PO DAILY 03/22/14 [History] Levothyroxine 75 mcg PO ACBRK 03/22/14 [History] Sertraline HCl 200 mg PO DAILY 03/22/14 [History] traZODone 50 mg PO BEDTIME PRN 03/22/14 [History] Acetaminophen [Tylenol] 650 mg PO Q4H PRN 06/09/17 [History] busPIRone [Buspar] 7.5 mg PO BID 06/09/17 [History] Esomeprazole [NexIUM] 20 mg PO BIDAC 07/02/17 [History] Fluconazole [Diflucan] 400 mg PO DAILY #42 tablet 07/08/17 [Rx] Gabapentin [Neurontin] 300 mg PO TID #90 cap 07/08/17 [Rx] Levofloxacin 750 mg PO Q48H #3 tablet 07/08/17 [Rx] Sertraline [Zoloft] 200 mg PO DAILY #60 tablet 07/08/17 [Rx] amLODIPine [Norvasc] 5 mg PO DAILY #30 tablet 07/08/17 [Rx] oxyCODONE 5 mg PO Q4H PRN #20 tablet 07/08/17 [Rx] Patient Handouts: Sepsis, Adult - Discharge Summary/Plan Comment DC Time >30 min.: No - Patient Data Vitals - Most Recent: Last Vital Signs Temp 97.8 F 07/08/17 07:49 Pulse 65 07/08/17 07:49 Resp 18 07/08/17 07:49 BP 126/57 L 07/08/17 07:49 Pulse Ox 96 07/08/17 07:49 Weight - Most Recent: 155 lb 12.8 oz Med Orders - Current: Current Medications Acetaminophen (Tylenol) 650 mg PO Q4H PRN PRN Reason: Pain (mild 1-3) Last Admin: 07/06/17 06:54 Dose: 650 mg Amlodipine Besylate (Norvasc) 5 mg PO DAILY [facility] Last Admin: 07/07/17 09:16 Dose: 5 mg Buspirone HCl (Buspar) 7.5 mg PO BID [facility] Last Admin: 07/07/17 20:08 Dose: 7.5 mg Calcium Carbonate (Calcium Carbonate/Vitamin D 1250 Mg-200 Unit) 1 tab PO DAILY [facility] Last Admin: 07/07/17 09:15 Dose: 1 tab Cholecalciferol (Vitamin D3) 1,000 units PO DAILY [facility] Last Admin: 07/07/17 09:16 Dose: 1,000 units Docusate Sodium (Colace) 100 mg PO BID [facility] Last Admin: 07/07/17 20:09 Dose: 100 mg Fluconazole (Diflucan) 400 mg PO DAILY [facility] Stop: 07/29/17 09:01 Last Admin: 07/07/17 09:16 Dose: 400 mg Gabapentin (Neurontin) 300 mg PO TID [facility] Last Admin: 07/07/17 20:09 Dose: 300 mg Levofloxacin (Levaquin) 750 mg PO Q48H [facility] Stop: 07/12/17 18:01 Last Admin: 07/06/17 17:25 Dose: 750 mg Levothyroxine Sodium (Levothyroxine) 75 mcg PO ACBRK [facility] Last Admin: 07/08/17 07:38 Dose: 75 mcg Oxycodone HCl (Oxycodone) 10 mg PO Q4H PRN PRN Reason: Pain Last Admin: 07/08/17 04:20 Dose: 10 mg Pantoprazole Sodium (Protonix) 40 mg PO BIDAC [facility] Last Admin: 07/08/17 07:38 Dose: 40 mg Sertraline HCl (Zoloft) 200 mg PO DAILY [facility] Last Admin: 07/07/17 09:17 Dose: 200 mg Trazodone HCl (Trazodone) 50 mg PO BEDTIME PRN PRN Reason: Insomnia Last Admin: 07/07/17 20:14 Dose: 50 mg Discontinued Medications Gabapentin (Neurontin) 200 mg PO BID [facility] Last Admin: 07/02/17 21:00 Dose: 200 mg Oxycodone HCl (Oxycodone) 5 mg PO Q4H PRN PRN Reason: Pain Last Admin: 07/04/17 13:39 Dose: 5 mg Oxycodone HCl (Oxycodone) 5 mg PO Q4H PRN PRN Reason: Pain (moderate 4-6) Sodium Chloride (Saline Flush) 5 ml IV DAILY [facility] Last Admin: 07/02/17 18:36 Dose: Not Given Sodium Chloride (Saline Flush) 5 ml IV DAILY [facility] Last Admin: 07/03/17 11:14 Dose: Not Given *Q Meaningful Use (DIS) - VTE *Q VTE Criteria *Q: - Stroke *Q Stroke Criteria *Q: - AMI *Q AMI Criteria *Q:
[2017-07-08] MEDS: busPIRone 15 MG Tab PO SCH (08:57)
[2017-07-08] MEDS: Calcium Carbonate/Vitamin D3 1250 MG-200 Unit Tab PO SCH (08:58)
[2017-07-08] MEDS: Docusate Sodium 100 MG Cap PO SCH (08:58)
[2017-07-08] MEDS: Fluconazole 100 MG Tab PO SCH (08:59)
[2017-07-08] MEDS: Gabapentin 300 MG Cap PO SCH (08:59)
[2017-07-08] MEDS: amLODIPine 5 MG Tab PO SCH (09:00)
[2017-07-08] MEDS: Sertraline 100 MG Tab PO SCH (09:00)
[2017-07-08] MEDS: Cholecalciferol (Vitamin D3) 1,000 Unit Tab PO SCH (09:00)
== END 2017-07-08 10:10 | disposition home or self-care (01) | DRG 947 ==
LOC: FB.MS 07-02 11:44
PROVIDERS: ADMIT Family Medicine; ATTEND Family Medicine
DX: R53.1 Weakness (principal); A41.9 Sepsis, unspecified organism; R65.21 Severe sepsis with septic shock; N15.1 Renal and perinephric abscess; N39.0 Urinary tract infection, site not specified; Z98.890 Other specified postprocedural states; Z79.2 Long term (current) use of antibiotics; Z90.5 Acquired absence of kidney; Z90.81 Acquired absence of spleen; I10 Essential (primary) hypertension; G89.29 Other chronic pain; F32.9 Major depressive disorder, single episode, unspecified; F41.9 Anxiety disorder, unspecified; E03.9 Hypothyroidism, unspecified; Z88.1 Allergy status to other antibiotic agents; H54.7 Unspecified visual loss; Z87.01 Personal history of pneumonia (recurrent); Z87.440 Personal history of urinary (tract) infections; K21.9 Gastro-esophageal reflux disease without esophagitis; Z87.891 Personal history of nicotine dependence; G62.9 Polyneuropathy, unspecified; Z98.84 Bariatric surgery status; Z96.659 Presence of unspecified artificial knee joint; M54.42 Lumbago with sciatica, left side; Z98.1 Arthrodesis status
CPT/HCPCS: 97035-GP; 97116-GP; 97140-GP; 97161-GP; 97166-GO; 97530-GO; 97530-GO-KX; 97535-GO; A9270-GY